=== PATIENT | male | born 1935 | race Asian ===

== ENCOUNTER → 2022-02-06 | Outpatient (CLI) | payer MEDICARE, BC ==
[2022-02-06 15:15] LABS: BASOPHILS % 0.5 % (0.0-1.0); EOSINOPHILS # (AUTO) 0.3 (0.0-0.4); EOSINOPHILS % 4.1 % (0.0-6.0); HEMATOCRIT 27.9 % (38.2-49.6); HEMOGLOBIN 8.4 g/dL (14.0-18.0); LYMPHOCYTES # (AUTO) 1.8 (1.0-3.2); MEAN CORPUSCULAR HEMOGLOBIN 27.7 pg (28-32); MEAN CORPUSCULAR HGB CONC 30.1 g/dL (31-35); MEAN CORPUSCULAR VOLUME 92.1 fL (81-99); MONOCYTES # (AUTO) 0.3 (0.2-0.8); MONOCYTES % 5.2 % (4.4-11.3); NEUTROPHILS # (AUTO) 3.7 (2.1-6.9); PLATELET COUNT 250 x10e3/uL (140-360); RED BLOOD COUNT 3.03 x10e6/uL (4.3-5.7); RED CELL DISTRIBUTION WIDTH 15.8 % (11.7-14.4)
[2022-02-06 15:34] LABS: ALBUMIN 2.9 g/dL (3.5-5.0); ALBUMIN/GLOBULIN RATIO 0.7 (0.8-2.0); CALCIUM 8.5 mg/dL (8.4-10.2); CREATININE, SERUM 1.77 mg/dL (0.72-1.25)
== END ==
LOC: CARD 13:47
PROVIDERS: ATTEND Family Medicine Adult Medicine
DX: I79.8 Other disorders of arteries, arterioles and capillaries in diseases classified elsewhere (principal); L89.153 Pressure ulcer of sacral region, stage 3
CPT/HCPCS: 36415; 80053; 83036; 84134; 85025; 93922; 93925

== ENCOUNTER 2022-02-27 12:24 | Outpatient (RCR) | payer MEDICARE, BC ==
[~2022-02-27 12:24] MED LIST: LIDOCAINE VISC 2% SOLN 15 ML UDC ONE
[2022-02-27] MEDS ORDERED: LIDOCAINE VISC 2% SOLN 15 ML UDC ONE (16:36)
== END 2022-03-06 ==
LOC: WCC 12:24
PROVIDERS: ATTEND Family Medicine Adult Medicine
DX: L89.153 Pressure ulcer of sacral region, stage 3 (principal); L89.513 Pressure ulcer of right ankle, stage 3; L89.891 Pressure ulcer of other site, stage 1; L89.610 Pressure ulcer of right heel, unstageable; S81.801A Unspecified open wound, right lower leg, initial encounter; E11.621 Type 2 diabetes mellitus with foot ulcer; I79.8 Other disorders of arteries, arterioles and capillaries in diseases classified elsewhere; N28.9 Disorder of kidney and ureter, unspecified; I10 Essential (primary) hypertension; I51.9 Heart disease, unspecified; E78.5 Hyperlipidemia, unspecified; B96.5 Pseudomonas (aeruginosa) (mallei) (pseudomallei) as the cause of diseases classified elsewhere; B96.89 Other specified bacterial agents as the cause of diseases classified elsewhere; Z74.01 Bed confinement status

== ENCOUNTER 2022-03-22 13:38 | Outpatient (RCR) | payer MEDICARE, BC ==
[~2022-03-22 13:38] MED LIST changes: +LIDOCAINE/PRILOCAINE 2.5-2.5% KIT ONE; +TRYPSIN/BALSAM PERU/CASTOR OIL ONE
== END 2022-04-05 ==
LOC: WCC 13:38
PROVIDERS: ATTEND Family Medicine Adult Medicine
DX: L89.153 Pressure ulcer of sacral region, stage 3 (principal); L89.613 Pressure ulcer of right heel, stage 3; E11.621 Type 2 diabetes mellitus with foot ulcer; S81.801A Unspecified open wound, right lower leg, initial encounter; I79.8 Other disorders of arteries, arterioles and capillaries in diseases classified elsewhere; N28.9 Disorder of kidney and ureter, unspecified; I10 Essential (primary) hypertension; E78.5 Hyperlipidemia, unspecified; I51.9 Heart disease, unspecified; D50.8 Other iron deficiency anemias; E44.0 Moderate protein-calorie malnutrition; Z74.01 Bed confinement status